=== PATIENT | female | born 2005 | race Two or more races ===

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

== ENCOUNTER 2024-08-09 07:57 | Emergency (ER) | payer OTHER, BC ==
[~2024-08-09] VITALS: Ht 162.6 cm; Wt 56.0 kg
[~2024-08-09 07:57] MED LIST: ACET500T58 PO; CEPH500C PO
--- NOTE | 2024-08-09 08:18 | ED.PDOC ---
History of Present Illness HPI Comments 19 y/o female pt presents to the clinic for productive cough, chest tightness that started yesterday. Pt reports a history of pneumonia. Pt denies fevers. Patient reports she has use her inhaler use at home multiple times without relief. Patient has audible rhonchi. Patient speaking in full and complete se ntences. Respirations are even and unlabored Chief Complaint: Flu like Time Seen by MD: 08:16 Primary Care Provider: UNKNOWN Reviewed Notes: Nurses Notes, Medications Allergies: Coded Allergies: Penicillins (Verified Allergy, Unknown, 08/26/23) Home Meds Active Scripts Prednisone (Prednisone) 20 Mg Tab, 60 MG PO DAILY for 5 Days, #15 TAB 0 Refills Prov:EDUIN BAEZ 08/09/24 Udgebzrofze-Tiuzhqup-Qv (Bromphen/Pseudoephedrine 30-2-10 mg/5Ml) 1 Syp Syp, 10 ML PO Q6HP PRN for 10 Days, #400 ML 0 Refills Prov:EDUIN BAEZ 08/09/24 Acetaminophen (Acetaminophen) 500 Mg Tab, 500 MG PO Q6HPRN, #30 TAB 0 Refills Prov:ROXANNE MORENO 08/27/23 Cephalexin Monohydrate (Cephalexin) 500 Mg Cap, 1 CAP PO BID for 7 Days, #14 CAP 0 Refills Prov:ROXANNE MORENO 08/27/23 Information Source: Patient Past Medical History PAST MEDICAL HISTORY: Asthma Surgical History: Denies all surgeries [employer] History: No Pertinent [employer] History Family History Family History: Reviewed,noncontributory to illness, Unknown Social History Smoker: Non-Smoker Alcohol: Denies ETOH Use Drugs: Denies Drug Use Lives In: Home Constitutional: denies: chills, diaphoresis, fatigue, fever, malaise, sweats, weakness, others EENTM: denies: blurred vision, double vision, ear bleeding, ear discharge, ear drainage, ear pain, ear ringing, eye pain, eye redness, hearing loss, mouth pain, mouth swelling, nasal discharge, nose bleeding, nose congestion, nose arthur n, photophobia, tearing, throat pain, throat swelling, voice changes, others Respiratory: reports: cough, others (Productive cough) Cardiovascular: denies: chest pain, dizzy spells, diaphoresis, Dyspnea on exertion, edema, irregular heart beat, left arm pain, lightheadedness, palpitations, PND, syncope, others Gastrointestinal: denies: abdomen distended, abdominal pain, blood streaked bowels, constipated, diarrhea, dysphagia, difficulty swallowing, hematemesis, melena, nausea, poor appetite, poor fluid intake, rectal bleeding, rectal pain, vomiting, others Genitourinary: denies: abnormal vagina bleeding, burning, dyspareunia, dysuria, flank pain, frequency, hematuria, incontinence, pain, , vagina discharge, urgency, others Neurological: denies: dizziness, fainting, headache, left sided numbness, left sided weakness, numbness, paresthesia, pre-existing deficit, right sided numbness, right sided weakness, seizure, speech problems, tingling, tremors, weakness, others Musculoskeletal: denies: back pain, gout, joint pain, joint swelling, muscle pain, muscle stiffness, neck pain, others Integumetry: denies: bruises, change in color, change in hair/nails, dryness, laceration, lesions, lumps, rash, wounds, others Allergic/Immunocompromised: denies: Difficulty Healing, Frequent Infections, Hives, Itching, others Hematologic/Lymphatic: denies: anemia, blood clots, easy bleeding, easy bruising, swollen glands, others Endocrine: denies: excessive hunger, excessive sweating, excessive thirst, excessive urination, flushing, intolerance to cold, intolerance to heat, unexplained weight gain, unexplained weight loss, others Psychiatric: denies: anxiety, bipolar disorder, depression, hopeless, panic disorder, schizophrenia, sleepless, suicidal, others All Other Systems: Reviewed and Negative Physical Exam General Appearance: No Apparent Distress, Normal HEENT: Normal ENT Inspection, Pharynx Normal, TMs Normal Neck: Full Range of Motion, Non-Tender, Normal, Normal Inspection Respiratory: Chest Non-Tender, No Accessory Muscle Use, No Respiratory Distress, Normal Breath Sounds, Rhonchi, Other (Productive cough) Cardiovascular: No Edema, No JVD, No Murmur, No Gallop, Normal Peripheral Pulses, Regular Rate/Rhythm Breast Exam: Deferred Gastrointestinal: No Organomegaly, Non Tender, No Pulsatile Mass, Normal Bowel Sounds, Soft Genitalia: Deferred Pelvic: Deferred Rectal: Deferred Extremities: No calf tenderness, Normal capillary refill, Normal inspection, Normal range of motion, Non-tender, No pedal edema Musculoskeletal : Apperance: Normal Neurologic: Alert, 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 Was a procedure done?: No Differential Dx Considerations may include: pneumonia, asthma exacerbation, influenza, Covid-19 X-Ray, Labs, Meds, VS Vital Signs Date Time Temp Pulse Resp B/P (MAP) Pulse Ox O2 Delivery O2 Flow Rate FiO2 08/09/24 09:11 18 95 Room Air* 0 21 21 08/09/24 08:48 99.2 118 18 128/88 (101) 96 99.2 08/09/24 08:48 118 16 96 Room Air 08/09/24 08:11 99.0 119 16 130/92 (105) 96 Lab Test 08/09/24 08:07 Range/Units Influenza Type A Antigen Negative Negative Influenza Type B Antigen Negative Negative SARS-CoV-2 Antigen (Rapid) Negative NEGATIVE Current Medications Medications (Trade) Dose Ordered Sig/Ashlee Route Start Time Stop Time Status Last Admin Prednisone 40 mg ONCE ONCE PO 08/09/24 08:45 08/09/24 09:33 DC 08/09/24 09:54 X-Ray, Labs, Meds, VS Comment On re-evaluation patient has symptomatic improvement. Patient is stable for discharge at this time. All test results and diagnostic imaging have been interpreted. All diagnostic findings, discharge care, and education instruction provided to the patient. Follow-up with PCP in 2-3 days Patient verbalized understanding, discharge instructions and agrees to treatment plan Vital signs are stable Patient is ambulatory Patient advised of which symptoms necessitate a return visit to the emergency room. Patient to return emergency room for any new worsening symptoms. Patient is aware that the purpose of this visit is for an acute medical emergency requiring emergent stabilization. Chronic conditions, including malignancies have not been ruled out. Patient is instructed to follow up with PCP as directed for continued care and workup. If unable to arrange follow up, patient is to return to the emergency room for reassessment. Patient was given verbal and written discharge instructions and acknowledges understanding Time of 1ST Reevaluation: 10:21 Reevaluation 1ST: Improved Patient Education/Counseling: Diagnosis, Treatment, Prognosis Family Education/Counseling: No Family Present Departure 1 Departure Time of Disposition: 10:40 Impression: Primary Impression: Upper respiratory infection Qualified Codes: J06.9 - Acute upper respiratory infection, unspecified Disposition: 01 HOME / SELF CARE / HOMELESS Condition: Stable e-Prescriptions Prednisone (Prednisone) 20 Mg Tab 60 MG PO DAILY for 5 Days, #15 TAB 0 Refills Prov: EDUIN BAEZ [facility] 08/09/24 Znhtakduxxr-Uzdzoxxx-Re (Bromphen/Pseudoephedrine 30-2-10 mg/5Ml) 1 Syp Syp 10 ML PO Q6HP PRN for 10 Days, #400 ML 0 Refills Prov: EDUIN BAEZ [facility] 08/09/24 Discharged With: Self Critical Care Note Critical Care Time?: No Stability Stability form required: No Heart Score Heart Score: Heart Score Response (Comments) Value History N/A 0 EKG N/A 0 Age N/A 0 Risk Factors N/A 0 Troponin N/A 0 Total 0 EDUIN BAEZ [facility] Aug 09, 2024 08:18
--- NOTE | 2024-08-09 08:44 | DVH ---
EXAM: XY CHEST TWO VIEWS ROUTINE CLINICAL HISTORY: cough, sob COMPARISON: None TECHNIQUE: Frontal and lateral view of the chest was obtained FINDINGS: Lines and Tubes: None Lungs: No focal consolidation. Pleura: No effusion. No pneumothorax. Cardiomediastinal contours: Unremarkable Bones: No acute osseous abnormality. IMPRESSION: No acute cardiopulmonary disease.
[2024-08-09] MEDS: IPRATROPIUM BROM 0.5 MG/2.5ML INH SOL NEB ONE (08:45)
[2024-08-09] MEDS: ALBUTEROL SULF 2.5 MG/0.5ML(0.5%) NEB SOLN NEB ONE (08:45)
[2024-08-09 08:48] VITALS: BP 128/88; PULSE 118; TEMP 99.2
[2024-08-09] MEDS: IPRATROPIUM BROM 0.5 MG/2.5ML INH SOL ONE (09:03)
[2024-08-09] MEDS: ALBUTEROL SULF 2.5 MG/0.5ML(0.5%) NEB SOLN ONE (09:04)
[2024-08-09 09:11] VITALS: RESP 18; O2SAT 95
[2024-08-09] MEDS ORDERED: PRED20TA2 PO (09:47)
[2024-08-09] MEDS ORDERED: PSEU1SYP6 PO (09:47)
[2024-08-09] MEDS: predniSONE 20 MG TAB PO ONE (09:54)
[2024-08-09 10:38] LABS: Rapid Influenza A Negative (Negative); Rapid Influenza B Negative (Negative)
[2024-08-09 10:39] LABS: COVID19 ANTIGEN SOFIA FIA NEGATIVE (NEGATIVE)
== END 2024-08-09 10:47 | disposition home or self-care (01) ==
LOC: ER 07:57
DX: J06.9 Acute upper respiratory infection, unspecified (principal); J45.909 Unspecified asthma, uncomplicated; Z88.0 Allergy status to penicillin; Z79.52 Long term (current) use of systemic steroids; Z79.899 Other long term (current) drug therapy; Z20.822 Contact with and (suspected) exposure to COVID-19
CPT/HCPCS: 36415; 71046; 87426; 87804; 94640; 99284; J7512